=== PATIENT | female | born 1935 | race Caucasian/White ===

== ENCOUNTER → 2018-04-13 15:09 | Outpatient (CLI) | payer MEDICARE, OTHER, SELFPAY ==
[2018-04-13 15:41] LABS: Add Manual Diff / Slide Review NO; Basophils Percent Auto 0.6 % (0-2); Eosinophils Percent Auto 1.8 % (2-4); Hematocrit 39.8 % (36-46); Hemoglobin 13.4 g/dL (12.0-16.0); Lymphocytes Percent Auto 25.6 % (25-40); Mean Corpuscular HGB Conc 33.6 % (30-36); Mean Corpuscular Hemoglobin 30.7 PG (26-34); Mean Corpuscular Volume 91.2 fL (80-100); Monocytes Percent Auto 8.2 % (3-14); Neutrophils Absolute Auto 4200 /uL (3000-5900); Neutrophils Percent Auto 63.8 % (50-75); Platelet Count 301 X10^3/uL (150-400); Red Blood Cell Count 4.36 X10^6/uL (4.0-5.2); White Blood Cell Count 6.7 X10^3/uL (4.5-11.0)
[2018-04-13 16:08] LABS: Blood Urea Nitrogen 18 mg/dL (7-17); Calcium 9.5 mg/dL (8.4-10.2); Carbon Dioxide 25 mmol/L (22-32); Chloride 106 mmol/L (98-107); Estimated Glomerular Filt Rate > 60.0 mL/min (>60); Glucose 108 mg/dL (80-110); HEMOLYSIS < 15 (0-50); Potassium 4.5 mmol/L (3.4-5.1); Sodium 143 mmol/L (137-145)
== END ==
PROVIDERS: Family Provider Family Medicine; PCP Family Medicine; Visit Provider Nurse Practitioner Family
DX: I11.0 Hypertensive heart disease with heart failure (principal); R25.1 Tremor, unspecified
CPT/HCPCS: 36415; 80048; 85025

== ENCOUNTER → 2018-04-23 11:27 | Outpatient (CLI) | payer MEDICARE, OTHER, SELFPAY ==
[2018-04-23 13:08] LABS: BUN Creatinine Ratio 21.4 (6-22); Blood Urea Nitrogen 15 mg/dL (7-17); Calcium 9.8 mg/dL (8.4-10.2); Carbon Dioxide 30 mmol/L (22-32); Chloride 104 mmol/L (98-107); Estimated Glomerular Filt Rate > 60.0 mL/min (>60); Glucose 93 mg/dL (80-110); HEMOLYSIS < 15 (0-50); Potassium 5.1 mmol/L (3.4-5.1); Sodium 142 mmol/L (137-145)
== END ==
PROVIDERS: Family Provider Family Medicine; PCP Family Medicine; Visit Provider Registered Nurse
DX: I10 Essential (primary) hypertension (principal)
CPT/HCPCS: 36415; 80048

== ENCOUNTER → 2018-06-23 10:24 | Outpatient (CLI) | payer MEDICARE, OTHER, SELFPAY ==
[2018-06-23 12:16] LABS: Add Manual Diff / Slide Review NO; Basophils Percent Auto 0.6 % (0-2); Eosinophils Percent Auto 0.9 % (2-4); Hematocrit 40.9 % (36-46); Hemoglobin 13.9 g/dL (12.0-16.0); Lymphocytes Percent Auto 20.4 % (25-40); Mean Corpuscular Hemoglobin 30.6 PG (26-34); Monocytes Percent Auto 8.5 % (3-14); Neutrophils Absolute Auto 4500 /uL (3000-5900); Neutrophils Percent Auto 69.6 % (50-75); Platelet Count 315 X10^3/uL (150-400); Red Blood Cell Count 4.55 X10^6/uL (4.0-5.2); Red Cell Distribution Width 13.3 % (11.6-14.8); White Blood Cell Count 6.4 X10^3/uL (4.5-11.0)
[2018-06-23 12:51] LABS: BUN Creatinine Ratio 18.8 (6-22); Blood Urea Nitrogen 15 mg/dL (7-17); Calcium 9.7 mg/dL (8.4-10.2); Carbon Dioxide 27 mmol/L (22-32); Chloride 103 mmol/L (98-107); Estimated Glomerular Filt Rate > 60.0 mL/min (>60); Glucose 85 mg/dL (80-110); HEMOLYSIS < 15 (0-50); Potassium 4.8 mmol/L (3.4-5.1); Sodium 143 mmol/L (137-145)
[2018-06-23 13:16] LABS: Thyroid Stimulating Hormone 3.43 uIU/mL (0.47-4.68)
== END ==
PROVIDERS: PCP Registered Nurse; Visit Provider Registered Nurse
DX: F33.0 Major depressive disorder, recurrent, mild (principal); F03.90 Unspecified dementia, unspecified severity, without behavioral disturbance, psychotic disturbance, mood disturbance, and anxiety; L65.9 Nonscarring hair loss, unspecified
CPT/HCPCS: 36415; 80048; 84443; 85025

== ENCOUNTER → 2018-10-27 11:53 | Outpatient (CLI) | payer MEDICARE, OTHER, SELFPAY ==
[2018-10-27 12:28] LABS: Add Manual Diff / Slide Review NO; Basophils Absolute Auto 0 /uL (0-100); Basophils Percent Auto 0.5 % (0-2); Eosinophils Absolute Auto 0 /uL (0-450); Eosinophils Percent Auto 0.7 % (2-4); Hematocrit 40.2 % (36-46); Hemoglobin 13.4 g/dL (12.0-16.0); Lymphocytes Absolute Auto 1200 /uL (1100-4500); Lymphocytes Percent Auto 17.9 % (25-40); Mean Corpuscular HGB Conc 33.2 % (30-36); Mean Corpuscular Hemoglobin 30.2 PG (26-34); Mean Corpuscular Volume 90.8 fL (80-100); Monocytes Absolute Auto 600 /uL (0-900); Monocytes Percent Auto 8.7 % (3-14); Neutrophils Absolute Auto 5000 /uL (1500-7000); Neutrophils Percent Auto 72.2 % (50-75); Platelet Count 304 X10^3/uL (150-400); Red Blood Cell Count 4.43 X10^6/uL (4.0-5.2); Red Cell Distribution Width 13.1 % (11.6-14.8); White Blood Cell Count 6.9 X10^3/uL (4.5-11.0)
[2018-10-27 14:03] LABS: BUN Creatinine Ratio 26.7 (6-22); Blood Urea Nitrogen 16 mg/dL (7-17); Calcium 9.5 mg/dL (8.4-10.2); Carbon Dioxide 23 mmol/L (22-32); Chloride 105 mmol/L (98-107); Estimated Glomerular Filt Rate > 60.0 mL/min (>60); Glucose 90 mg/dL (80-110); HEMOLYSIS 25 (0-50); Potassium 4.8 mmol/L (3.4-5.1); Sodium 139 mmol/L (137-145)
[2018-10-27 14:20] LABS: Thyroid Stimulating Hormone 5.74 uIU/mL (0.47-4.68)
[2018-10-27 14:39] LABS: Vitamin B12 245 pg/mL (239-931)
== END ==
PROVIDERS: Family Provider Family Medicine; PCP Registered Nurse; Visit Provider Registered Nurse
DX: Z51.81 Encounter for therapeutic drug level monitoring (principal); R03.0 Elevated blood-pressure reading, without diagnosis of hypertension
CPT/HCPCS: 36415; 80048; 82607; 84443; 85025

== ENCOUNTER → 2018-12-22 11:17 | Outpatient (CLI) | payer MEDICARE, OTHER, SELFPAY ==
[2018-12-22 16:11] LABS: Thyroid Stimulating Hormone 2.09 uIU/mL (0.47-4.68)
== END ==
PROVIDERS: Family Provider Family Medicine; PCP Registered Nurse; Visit Provider Registered Nurse
DX: E03.9 Hypothyroidism, unspecified (principal); R53.83 Other fatigue; Z51.81 Encounter for therapeutic drug level monitoring
CPT/HCPCS: 36415; 84443

== ENCOUNTER 2019-05-15 16:24 | Emergency (ER) | payer MEDICARE, OTHER, SELFPAY ==
[2019-05-15 16:28] VITALS: BP 138/74; PULSE 60; RESP 18; TEMP 36.7; O2SAT 98
[2019-05-15 16:35] VITALS: BP 138/74; PULSE 61; RESP 17; TEMP 36.5; O2SAT 98
--- NOTE | 2019-05-15 16:36 | ED_ITS ---
HPI - General Adult General Chief complaint: Syncope Stated complaint: GLF Time Seen by Provider: 05/15/19 16:34 Source: EMS Mode of arrival: EMS Limitations: altered mental status History of Present Illness HPI narrative: Patient is an 83-year-old female. Not on anticoagulation. Does have a history of dementia. He is a DNR/DNI with limited interventions brought in by EMS after the patient sustained an unwitnessed fall at her memory care facility. She does have a cut on her upper lip. Patient arrive not in a cervical collar and not on a backboard. Patient unable to provide any HPI or review of systems Related Data Home Medications Medication Instructions Recorded Confirmed Fluticasone Propionate (FLONASE) #0 03/24/11 naproxen sodium [Aleve] 220 mg PO PRN #0 03/24/11 IBUPROFEN (#SALETO) 200 mg PO PRN #0 09/05/11 LEVOTHYROXINE SODIUM 0.37 mg PO HS #0 09/05/11 CIMETIDINE 200 mg PO PRN PRN #0 05/30/13 Review of Systems Review of Systems ROS Unobtainable: Unobtainable due to mental status/LOC [facility] Medical History Dementia (Acute) Hyperlipidemia (Acute) Hypertension (Acute) Hypothyroid (Acute) Social History Smoking Status: Unknown if ever smoked Social History Smoking Status: Unknown if ever smoked Exam Initial Vital Signs Initial Vital Signs: Vital Signs Temperature 98.1 F 05/15/19 16:28 Pulse Rate 60 05/15/19 16:28 Respiratory Rate 18 05/15/19 16:28 Blood Pressure 138/74 05/15/19 16:28 Pulse Oximetry 98 05/15/19 16:28 Const General: comfortable and well developed HENNJ Head: No abrasion and No contusion Face and sinus: normal facial exam Mouth: lip abnormal (Abrasion to the right upper lip) Teeth and gingiva: other (Patient with loose tooth 8 And missing filling 6) Eyes Pupils: PERRL Resp Effort & Inspection: normal respiratory effort Auscultation: clear to auscultation bilaterally Cardio Rate: regular rate Skin Other: Abrasion to right upper lip Neuro General: awake Cognition: abnormal cognition Other: Patient would not follow commands, would not squeeze my hands, moaned and then started crying Extrem General: capillary refill normal Other: Patient with no appearance of pain with movement of all 4 extremities to include hips and knees and elbows and shoulders. Psych Appearance: grossly normal and well kempt Scores GCS [place] coma scale eye opening: Spontaneous [place] coma scale verbal response: Sounds [place] coma scale motor response: Localising [place] coma scale total score: 11 Course Orders Ordered: ED Orders 05/15/19 16:31 EKG-12 Lead Stat 05/15/19 16:43 CT cervical spine wo con Stat CT facial bones wo con Stat 05/15/19 16:44 CT head/brain wo con Stat Vital Signs - 8 hr 05/15/19 16:28 05/15/19 16:35 05/15/19 17:00 Temperature 98.1 F 97.7 F Pulse Rate 60 61 58 L Respiratory Rate 18 17 14 Blood Pressure 138/74 Blood Pressure [Right Arm] 138/74 140/74 Pulse Oximetry 98 98 100 Medical Decision Making Imaging Data CT face: Radiologist's impression: [place] [address] CT Scan Report Signed Patient: Maryann Head [facility]#: [id number] : [id number]:[id number] Age/Sex: 83 / FDate of Service: 05/15/19 Loc: ED Accession Number: [id number] Procedure: CT facial bones wo con Ordering Provider: Caleb Leung D.O. PROCEDURE: CT FACIAL BONES WO CON INDICATIONS: Fall with bleeding lip TECHNIQUE: Noncontrast 2.5 mm thick axial images acquired from the mandible through the frontal sinuses, with coronal and sagittal reformatting. For radiation dose reduction, the following was used: automated exposure control, adjustment of mA and/or kV according to patient size. COMPARISON: [facility], MR, BRAIN WITHOUT CONTRAST, 11/10/2007, 19:34. [facility], CT, SINUS SCREEN, 05/05/2009, 8:48. [facility], CT, CT HEAD/BRAIN WO CON, 05/15/2019, 16:59. [facility], CT, CT CERVICAL SPINE WO CON, 05/15/2019, 16:59. [facility], CT, HEAD WITHOUT CONTRAST, 05/30/2013, 14:50. [facility], CT, SINUS WITHOUT CONTRAST, 03/05/2012, 11:00. FINDINGS: Image quality: There is streak artifact associated with the metallic hardware. Bones and teeth: Orbital edmondosn are intact. Sinus edmondson show no fracture or deformity. Nasal bones and septum are intact. Visualized portions of the mandible demonstrate no fractures or subluxation. Zygomatic arches are intact. Pterygoid plates are intact. Visualized portions of the skull base and auditory canals are intact. Sinuses: Paranasal sinuses are aerated, without fluid levels, mucosal thickening, or mucoceles. Mastoid air cells are aerated. Bilateral crescencio bullosa are seen. The right crescencio bullosa is nearly filled with soft tissue material. There is mild leftward nasal septal deviation. Soft tissues: Mild soft tissue swelling is seen involving the head Vascular: Visualized vascular structures appear normal in the absence of contrast. Bony vascular foramina and canals are intact. IMPRESSION: No displaced fractures are seen. Dictated by: Jose Guadalupe Huff M.D. on 05/15/2019 at 16:34 Approved by: Jose Guadalupe Huff M.D. on 05/15/2019 at 16:36 CT cervical spine: Radiologist's impression: [place] [address] CT Scan Report Signed Patient: Maryann Head [facility]#: [id number] : [id number]:[id number] Age/Sex: 83 / FDate of Service: 05/15/19 Loc: ED Accession Number: [id number] Procedure: CT cervical spine wo con Ordering Provider: Calbe Leung D.O. PROCEDURE: CT CERVICAL SPINE WO CON INDICATIONS: Fall TECHNIQUE: Noncontrast 3 mm thick sections acquired from the skull base to the T4 level. Sagittal and coronal reformats were then constructed. For radiation dose reduction, the following was used: automated exposure control, adjustment of mA and/or kV according to patient size. COMPARISON: [facility], CT, CT HEAD/BRAIN WO CON, 05/15/2019, 16:59. [facility], CT, CT FACIAL BONES WO CON, 05/15/2019, 16:59. FINDINGS: Image quality: Excellent. Bones: No fractures or dislocations. Visualized superior ribs are intact. Degenerative changes are seen, including moderate to severe disc space narrowing at C5-C6 and C6-C7. Moderate disc space narrowing is seen at C4-C5. Endplate irregularity and sclerosis are seen, which are most prominent inferiorly. Posterior projecting endplate osteophytes are seen, which are most prominent at C6-C7. Age-appropriate osteopenia is seen. Soft tissues: Prevertebral soft tissues are normal in thickness. No paravertebral hematomas. No apical pneumothoraces. IMPRESSION: No acute fractures are seen. Relatively prominent lower cervical spine degenerative changes are seen. Dictated by: Jose Guadalupe Huff M.D. on 05/15/[address] scan - head: Radiologist's impression: Maryann Head Ananda 83 F 1935 [place] [address] CT Scan Report Signed Patient: Maryann Head [facility]#: [id number] : [id number]:[id number] Age/Sex: 83 / FDate of Service: 05/15/19 Loc: ED Accession Number: [id number] Procedure: CT head/brain wo con Ordering Provider: Caleb Leung D.O. PROCEDURE: CT HEAD/BRAIN WO CON INDICATIONS: Fall not on anticoagulation unwitnessed TECHNIQUE: Noncontrast 4.5 mm thick angled axial sections acquired from the foramen magnum to the vertex, with coronal and sagittal reformats. For radiation dose reduction, the following was used: automated exposure control, adjustment of mA and/or kV according to patient size. COMPARISON: [facility], MR, BRAIN WITHOUT CONTRAST, 11/10/2007, 19:34. [facility], CT, SINUS SCREEN, 05/05/2009, 8:48. [facility], CT, CT CERVICAL SPINE WO CON, 05/15/2019, 16:59. [facility], CT, CT FACIAL BONES WO CON, 05/15/2019, 16:59. [facility], CT, HEAD WITHOUT CONTRAST, 05/30/2013, 14:50. FINDINGS: Image quality: Excellent. CSF spaces: Basal cisterns are patent. No extra-axial fluid collections. The ventricles are symmetric in size and shape. Brain: No intracranial bleeds or masses. There is cerebral volume loss for age, with resultant ventricular and sulcal prominence. There are periventricular and deep white matter chronic small vessel ischemic changes. There is intracranial internal carotid artery atherosclerosis. Skull and face: Calvarium and visualized facial bones appear intact, without suspicious lesions. Sinuses: Visualized sinuses and mastoids are clear. IMPRESSION: No acute intracranial process is seen. No acute intracranial hemorrhage is seen. No displaced calvarial fracture can be seen. Note is made of age-appropriate brain parenchymal volume loss and chronic small vessel ischemic changes. Dictated by: Jose Guadalupe Huff M.D. on 05/15/2019 at 16:37 Approved by: Jose Guadalupe Huff M.D. on 05/15/2019 at 16:38 ECG Data Attestation: I personally reviewed and interpreted this ECG as follows: Prior ECG tracings: not available for review Interpretation: Sinus rhythm Ventricular rate is 60 Normal axis Normal QRS Normal QTC No ST T wave changes MDM Narrative Medical decision making narrative: Patient did have an unwitnessed fall. She is a DNR with limited interventions however discussion with the son the decision was made to obtain CT scans. There are no acute pathology noted on the CT scans. Patient does have a loose right upper front tooth however it is not d isplaced. She has an abrasion of her upper lip that does not require intervention here in the ER. We discussed care instructions. I also put in her discharge instructions that she should have a soft diet for the next couple days. I also recommended that she be evaluated by a dentist. Patient's 3 sons were in the emergency department for these discussions. They are given return precautions and follow-up instructions. The expressed understanding and agreement with plan. Discharge Plan Departure Patient Disposition: Home Clinical Impression: Abrasion of lip Qualifiers: Encounter type: initial encounter Qualified Code(s): S00.511A - Abrasion of lip, initial encounter Fall Qualifiers: Encounter type: initial encounter Qualified Code(s): W19.XXXA - Unspecified fall, initial encounter Fracture of tooth Qualifiers: Encounter type: initial encounter Fracture type: closed Qualified Code(s): S02.5XXA - Fracture of tooth (traumatic), initial encounter for closed fracture Instructions: How to Prevent Falls Activity Restrictions/Additional Instructions: The abrasion on her upper lip can be cleaned with soap and water. Icing it as much as possible would be beneficial. She does have a loose right upper tooth. I do recommend a soft diet for the next several days. I also recommend that she be evaluated by a dentist. She can take the Tylenol that is ordered for her as needed for any discomfort. She can return to the emergency department at any point for new or worsening symptoms. Prescriptions: No Action naproxen sodium [Aleve] 220 MG tablet 220 mg PO PRN Qty: 0 RF: 0 Fluticasone Propionate (FLONASE) Qty: 0 RF: 0 IBUPROFEN (#SALETO) 200 mg PO PRN Qty: 0 RF: 0 LEVOTHYROXINE SODIUM 0.37 mg PO HS Qty: 0 RF: 0 CIMETIDINE 200 mg PO PRN PRNQty: 0 RF: 0 Referrals: Galilea Rausch ARNP [Primary Care Provider] -
--- NOTE | 2019-05-15 16:43 | DI.CT.S_ITS ---
PROCEDURE: CT FACIAL BONES WO CON INDICATIONS: Fall with bleeding lip TECHNIQUE: Noncontrast 2.5 mm thick axial images acquired from the mandible through the frontal sinuses, with coronal and sagittal reformatting. For radiation dose reduction, the following was used: automated exposure control, adjustment of mA and/or kV according to patient size. COMPARISON: [facility], MR, BRAIN WITHOUT CONTRAST, 11/10/2007, 19:34. [facility], CT, SINUS SCREEN, 05/05/2009, 8:48. [facility], CT, CT HEAD/BRAIN WO CON, 05/15/2019, 16:59. [facility], CT, CT CERVICAL SPINE WO CON, 05/15/2019, 16:59. [facility], CT, HEAD WITHOUT CONTRAST, 05/30/2013, 14:50. [facility], CT, SINUS WITHOUT CONTRAST, 03/05/2012, 11:00. FINDINGS: Image quality: There is streak artifact associated with the metallic hardware. Bones and teeth: Orbital edmondson are intact. Sinus edmondson show no fracture or deformity. Nasal bones and septum are intact. Visualized portions of the mandible demonstrate no fractures or subluxation. Zygomatic arches are intact. Pterygoid plates are intact. Visualized portions of the skull base and auditory canals are intact. Sinuses: Paranasal sinuses are aerated, without fluid levels, mucosal thickening, or mucoceles. Mastoid air cells are aerated. Bilateral crescencio bullosa are seen. The right crescencio bullosa is nearly filled with soft tissue material. There is mild leftward nasal septal deviation. Soft tissues: Mild soft tissue swelling is seen involving the head Vascular: Visualized vascular structures appear normal in the absence of contrast. Bony vascular foramina and canals are intact. IMPRESSION: No displaced fractures are seen. Dictated by: Jose Guadalupe Huff M.D. on 05/15/2019 at 16:34 Approved by: Jose Guadalupe Huff M.D. on 05/15/2019 at 16:36
--- NOTE | 2019-05-15 16:43 | DI.CT.S_ITS ---
PROCEDURE: CT CERVICAL SPINE WO CON INDICATIONS: Fall TECHNIQUE: Noncontrast 3 mm thick sections acquired from the skull base to the T4 level. Sagittal and coronal reformats were then constructed. For radiation dose reduction, the following was used: automated exposure control, adjustment of mA and/or kV according to patient size. COMPARISON: [facility], CT, CT HEAD/BRAIN WO CON, 05/15/2019, 16:59. [facility], CT, CT FACIAL BONES WO CON, 05/15/2019, 16:59. FINDINGS: Image quality: Excellent. Bones: No fractures or dislocations. Visualized superior ribs are intact. Degenerative changes are seen, including moderate to severe disc space narrowing at C5-C6 and C6-C7. Moderate disc space narrowing is seen at C4-C5. Endplate irregularity and sclerosis are seen, which are most prominent inferiorly. Posterior projecting endplate osteophytes are seen, which are most prominent at C6-C7. Age-appropriate osteopenia is seen. Soft tissues: Prevertebral soft tissues are normal in thickness. No paravertebral hematomas. No apical pneumothoraces. IMPRESSION: No acute fractures are seen. Relatively prominent lower cervical spine degenerative changes are seen. Dictated by: Jose Guadalupe Huff M.D. on 05/15/2019 at 16:38 Approved by: Jose Guadalupe Huff M.D. on 05/15/2019 at 16:40
--- NOTE | 2019-05-15 16:44 | DI.CT.S_ITS ---
PROCEDURE: CT HEAD/BRAIN WO CON INDICATIONS: Fall not on anticoagulation unwitnessed TECHNIQUE: Noncontrast 4.5 mm thick angled axial sections acquired from the foramen magnum to the vertex, with coronal and sagittal reformats. For radiation dose reduction, the following was used: automated exposure control, adjustment of mA and/or kV according to patient size. COMPARISON: [facility], MR, BRAIN WITHOUT CONTRAST, 11/10/2007, 19:34. [facility], CT, SINUS SCREEN, 05/05/2009, 8:48. [facility], CT, CT CERVICAL SPINE WO CON, 05/15/2019, 16:59. [facility], CT, CT FACIAL BONES WO CON, 05/15/2019, 16:59. [facility], CT, HEAD WITHOUT CONTRAST, 05/30/2013, 14:50. FINDINGS: Image quality: Excellent. CSF spaces: Basal cisterns are patent. No extra-axial fluid collections. The ventricles are symmetric in size and shape. Brain: No intracranial bleeds or masses. There is cerebral volume loss for age, with resultant ventricular and sulcal prominence. There are periventricular and deep white matter chronic small vessel ischemic changes. There is intracranial internal carotid artery atherosclerosis. Skull and face: Calvarium and visualized facial bones appear intact, without suspicious lesions. Sinuses: Visualized sinuses and mastoids are clear. IMPRESSION: No acute intracranial process is seen. No acute intracranial hemorrhage is seen. No displaced calvarial fracture can be seen. Note is made of age-appropriate brain parenchymal volume loss and chronic small vessel ischemic changes. Dictated by: Jose Guadalupe Huff M.D. on 05/15/2019 at 16:37 Approved by: Jose Guadalupe Huff M.D. on 05/15/2019 at 16:38
[2019-05-15 17:00] VITALS: BP 140/74; PULSE 58; RESP 14; O2SAT 100
== END 2019-05-15 18:06 | disposition home or self-care (01) ==
PROVIDERS: Emergency Provider Emergency Medicine; Family Provider Family Medicine; PCP Registered Nurse
DX: S00.511A Abrasion of lip, initial encounter (principal); S02.5XXA Fracture of tooth (traumatic), initial encounter for closed fracture; Z86.69 Personal history of other diseases of the nervous system and sense organs; I10 Essential (primary) hypertension; W19.XXXA Unspecified fall, initial encounter
CPT/HCPCS: 70450; 70486; 72125; 93005; 93010; 99283; 99284

== ENCOUNTER → 2019-06-07 14:12 | Outpatient (CLI) | payer MEDICARE, OTHER, SELFPAY ==
[2019-06-07 14:48] LABS: Add Manual Diff / Slide Review NO; Basophils Absolute Auto 100 /uL (0-100); Basophils Percent Auto 0.9 % (0-2); Eosinophils Absolute Auto 100 /uL (0-450); Eosinophils Percent Auto 1.9 % (2-4); Hematocrit 41.4 % (36-46); Hemoglobin 13.7 g/dL (12.0-16.0); Lymphocytes Absolute Auto 1300 /uL (1100-4500); Lymphocytes Percent Auto 17.4 % (25-40); Mean Corpuscular HGB Conc 33.1 % (30-36); Mean Corpuscular Hemoglobin 29.9 PG (26-34); Mean Corpuscular Volume 90.2 fL (80-100); Monocytes Absolute Auto 600 /uL (0-900); Monocytes Percent Auto 8.1 % (3-14); Neutrophils Absolute Auto 5400 /uL (1500-7000); Neutrophils Percent Auto 71.7 % (50-75); Platelet Count 301 X10^3/uL (150-400); Red Blood Cell Count 4.59 X10^6/uL (4.0-5.2); Red Cell Distribution Width 12.9 % (11.6-14.8); White Blood Cell Count 7.6 X10^3/uL (4.5-11.0)
[2019-06-07 15:15] LABS: BUN Creatinine Ratio 38.3 (6-22); Blood Urea Nitrogen 23 mg/dL (7-17); Calcium 9.8 mg/dL (8.4-10.2); Carbon Dioxide 22 mmol/L (22-32); Chloride 108 mmol/L (98-107); Estimated Glomerular Filt Rate > 60.0 mL/min (>60); Glucose 113 mg/dL (80-110); HEMOLYSIS 26 (0-50); Potassium 4.2 mmol/L (3.4-5.1); Sodium 142 mmol/L (137-145)
[2019-06-07 16:01] LABS: Vitamin B12 244 pg/mL (239-931)
[2019-06-07 17:51] LABS: Thyroid Stimulating Hormone 1.63 uIU/mL (0.47-4.68)
== END ==
PROVIDERS: PCP Nurse Practitioner Family; Visit Provider Nurse Practitioner Family
DX: R29.6 Repeated falls (principal)
CPT/HCPCS: 36415; 80048; 82607; 84443; 85025